=== PATIENT | female | born 1965 | race African-American/Black ===

== ENCOUNTER 2019-06-05 07:05 | Emergency (ER) | payer MEDICAID ==
[~2019-06-05] VITALS: Ht 152.4 cm; Wt 70.5 kg
[2019-06-05] MEDS ORDERED: KETOROLAC TROMETHAMINE 60 MG/2 ML VIAL IM ONE (08:00)
[2019-06-05] MEDS ORDERED: CYCLOBENZAPRINE HCL 10 MG TABLET PO ONE (08:00)
[2019-06-05] MEDS ORDERED: ALBUTEROL SULFATE HFA 90 MCG/PUFF 8 GM INHALER IH ONE (09:00)
[2019-06-05] MEDS ORDERED: ALBUTEROL SULFATE 2.5 MG/0.5 ML NEB SOLUTION NEB ONE (09:00)
[2019-06-05] MEDS ORDERED: IPRATROPIUM BROMIDE 0.5 MG/2.5 ML NEB SOLUTION NEB ONE (09:00)
[2019-06-05 09:20] VITALS: BP 119/79
== END 2019-06-05 09:24 | disposition home or self-care (01) ==
LOC: EMS 07:05
DX: J06.9 Acute upper respiratory infection, unspecified (principal); M54.5 Low back pain
CPT/HCPCS: 71046; 94640; 96372; 99284; J1885; J3535